=== PATIENT | male | born 1975 | race Caucasian/White ===

== ENCOUNTER 2022-09-23 17:38 | Inpatient (IN) ==
[2022-09-23 19:37] LABS: Basophils # 0.1 10*3/uL (0.0-0.2); Basophils % 0.9 % (0.0-0.8); Eosinophils # 0.2 10*3/uL (0.0-0.87); Eosinophils % 1.7 % (0.00-10.9); Hematocrit 32.2 VOL% (42.0-52.0); Hemoglobin 10.4 GM/DL (14.0-18.0); Immature Granulocytes % 0.5 %; Immature Granulocytes Absolute 0.05 #; Lymphocytes # 1.9 10*3/uL (1.4-4.0); Lymphocytes % 17.4 % (21.2-54.2); Mean Corpuscular HGB Conc 32.3 GM/DL (32-36); Mean Corpuscular Volume 91.7 FL (87-102); Mean Platelet Volume 9.3 FL (9.6-12.0); Monocytes # 0.7 10*3/uL (0.11-0.8); Monocytes % 6.8 % (1.7-12.7); Neutrophils % 72.7 % (38.7-73.9); Platelet Count 358 T/CUMM (130-400); Red Blood Count 3.51 MC/CUMM (3.8-5.5); Red Cell Distribution Width 16.1 % (9.3-17.3); White Blood Count 10.9 T/CUMM (4-12)
[2022-09-23] MEDS ORDERED: MORPHINE 2 MG/1 ML SYRINGE IV STA ×2 (19:37→20:38)
[2022-09-23] MEDS ORDERED: ONDANSETRON 4 MG/2 ML VIAL IV STA (19:37)
[2022-09-23] MEDS ORDERED: SODIUM CHLORIDE 0.9% 1,000 ML IV STA (19:37)
[2022-09-23 19:58] LABS: Albumin 2.8 G/DL (3.4-5.0); Bilirubin,Total 1.2 MG/DL (0.20-1.00); Calcium 9.6 MG/DL (8.5-10.1); Osmolality,Calculated 278.5 MOS/KG (273-304); Potassium 3.8 MMOL/L (3.5-5.1); Total Protein 6.8 G/DL (6.4-8.2)
[2022-09-23] MEDS ORDERED: BUDESONIDE/FORMOTEROL 160-4.5 INHALER 6 GM INH PRN (23:30)
[2022-09-23] MEDS: ONDANSETRON 4 MG/2 ML VIAL IV PRN (23:30)
[2022-09-23] MEDS: MORPHINE 2 MG/1 ML SYRINGE IV PRN (23:30)
[2022-09-23] MEDS ORDERED: ALBUTEROL 2.5 MG/3 ML NEB RESP TX PRN (23:36)
[2022-09-24] MEDS: traZODone 50 MG TABLET PO SCH ×2 (00:03→20:59)
[2022-09-24] MEDS: rOPINIRole 1 MG TABLET PO SCH ×2 (00:03→20:59)
[2022-09-24] MEDS: SODIUM CHLORIDE 0.9% 1,000 ML IV SCH ×3 (01:15→18:04)
[2022-09-24] MEDS: ONDANSETRON 4 MG/2 ML VIAL IV PRN ×4 (04:37→22:22)
[2022-09-24] MEDS: MORPHINE 2 MG/1 ML SYRINGE IV PRN ×2 (04:38→09:26)
[2022-09-24 06:50] LABS: Basophils # 0.1 10*3/uL (0.0-0.2); Basophils % 0.7 % (0.0-0.8); Eosinophils # 0.2 10*3/uL (0.0-0.87); Eosinophils % 2.5 % (0.00-10.9); Hematocrit 28.2 VOL% (42.0-52.0); Immature Granulocytes % 0.5 %; Immature Granulocytes Absolute 0.04 #; Lymphocytes # 1.9 10*3/uL (1.4-4.0); Lymphocytes % 21.8 % (21.2-54.2); Mean Corpuscular HGB Conc 31.9 GM/DL (32-36); Mean Corpuscular Volume 92.2 FL (87-102); Mean Platelet Volume 9.6 FL (9.6-12.0); Monocytes # 0.7 10*3/uL (0.11-0.8); Monocytes % 7.7 % (1.7-12.7); Neutrophils % 66.8 % (38.7-73.9); Platelet Count 330 T/CUMM (130-400); Red Blood Count 3.06 MC/CUMM (3.8-5.5); Red Cell Distribution Width 16.1 % (9.3-17.3); White Blood Count 8.5 T/CUMM (4-12)
[2022-09-24 07:27] LABS: Albumin 2.2 G/DL (3.4-5.0); Bilirubin,Total 0.9 MG/DL (0.20-1.00); Calcium 8.7 MG/DL (8.5-10.1); Osmolality,Calculated 280.4 MOS/KG (273-304); Potassium 3.8 MMOL/L (3.5-5.1); Total Protein 6.3 G/DL (6.4-8.2)
[2022-09-24] MEDS ORDERED: [UNRECOGNIZED DRUG - OTHER] PO SCH (08:00)
[2022-09-24] MEDS ORDERED: LIPASE PROTEASE AMYLASE PO SCH (08:00)
[2022-09-24] MEDS ORDERED: PANTOPRAZOLE 40 MG TABLET PO SCH ×2 (09:00)
[2022-09-24] MEDS ORDERED: lisinopriL 20 MG TABLET PO SCH (09:00)
[2022-09-24] MEDS: INSULIN REGULAR 100 UNIT/ML SUBCUT SCH ×4 (09:23→20:59)
[2022-09-24] MEDS: ENOXAPARIN 40 MG/0.4 ML SYRINGE SUBCUT SCH (09:24)
[2022-09-24] MEDS: IPRATROPIUM 500 MCG/2.5 ML NEB RESP TX SCH ×3 (10:35→19:54)
[2022-09-24] MEDS: HYDROmorphone 1 MG/1 ML SYRINGE IV PRN ×3 (13:20→21:40)
[2022-09-24] MEDS: SUCRALFATE 1 GM/10 ML UDCUP PO SCH ×2 (16:51→20:59)
[2022-09-24] MEDS: fentaNYL 50 MCG/HR PATCH TRANSDERM SCH (16:57)
[2022-09-24] MEDS: AMINO ACIDS/DEXT/LYTES 4.25-5% 1,000 ML IV SCH (18:03)
[2022-09-24] MEDS: PANTOPRAZOLE 40 MG VIAL IV SCH (20:56)
[2022-09-25] MEDS: HYDROmorphone 1 MG/1 ML SYRINGE IV PRN ×6 (00:53→21:12)
[2022-09-25] MEDS: ONDANSETRON 4 MG/2 ML VIAL IV PRN ×5 (04:22→21:12)
[2022-09-25 06:10] LABS: Basophils # 0.1 10*3/uL (0.0-0.2); Basophils % 0.9 % (0.0-0.8); Eosinophils # 0.3 10*3/uL (0.0-0.87); Eosinophils % 3.8 % (0.00-10.9); Hematocrit 26.2 VOL% (42.0-52.0); Hemoglobin 8.3 GM/DL (14.0-18.0); Immature Granulocytes % 0.6 %; Immature Granulocytes Absolute 0.05 #; Lymphocytes # 1.7 10*3/uL (1.4-4.0); Lymphocytes % 21.3 % (21.2-54.2); Mean Corpuscular HGB Conc 31.7 GM/DL (32-36); Mean Corpuscular Volume 93.6 FL (87-102); Mean Platelet Volume 9.5 FL (9.6-12.0); Monocytes # 0.6 10*3/uL (0.11-0.8); Monocytes % 7.5 % (1.7-12.7); Neutrophils % 65.9 % (38.7-73.9); Platelet Count 301 T/CUMM (130-400); White Blood Count 8.2 T/CUMM (4-12)
[2022-09-25 06:24] LABS: Calcium 7.7 MG/DL (8.5-10.1); Osmolality,Calculated 281.3 MOS/KG (273-304); Potassium 3.2 MMOL/L (3.5-5.1)
[2022-09-25] MEDS: IPRATROPIUM 500 MCG/2.5 ML NEB RESP TX SCH ×4 (07:45→19:01)
[2022-09-25] MEDS: SUCRALFATE 1 GM/10 ML UDCUP PO SCH ×4 (08:04→21:12)
[2022-09-25] MEDS: INSULIN REGULAR 100 UNIT/ML SUBCUT SCH ×4 (08:26→21:12)
[2022-09-25] MEDS: ENOXAPARIN 40 MG/0.4 ML SYRINGE SUBCUT SCH (08:26)
[2022-09-25] MEDS: PANTOPRAZOLE 40 MG VIAL IV SCH ×2 (08:27→21:11)
[2022-09-25] MEDS: FLUCONAZOLE INJ 200 MG/100 ML PREMIX IV SCH (11:01)
[2022-09-25] MEDS: LIDOCAINE 2% VISCOUS 100 ML BOTTLE SWISH/SWAL SCH ×3 (11:33→21:13)
[2022-09-25] MEDS: POTASSIUM CHLORIDE RIDER 10 MEQ/100 ML PREMIX IV SCH ×4 (12:15→16:34)
[2022-09-25] MEDS: AMINO ACIDS/DEXT/LYTES 4.25-5% 1,000 ML IV SCH (16:32)
[2022-09-25] MEDS: SODIUM CHLORIDE 0.9% 1,000 ML IV SCH (16:40)
[2022-09-25] MEDS: rOPINIRole 1 MG TABLET PO SCH (21:12)
[2022-09-26] MEDS: ONDANSETRON 4 MG/2 ML VIAL IV PRN ×7 (00:50→23:16)
[2022-09-26] MEDS: HYDROmorphone 1 MG/1 ML SYRINGE IV PRN ×7 (00:50→23:16)
[2022-09-26] MEDS: LIDOCAINE 2% VISCOUS 100 ML BOTTLE SWISH/SWAL SCH ×4 (02:46→21:40)
[2022-09-26 05:17] LABS: Basophils % 0.4 % (0.0-0.8); Eosinophils # 0.3 10*3/uL (0.0-0.87); Eosinophils % 2.7 % (0.00-10.9); Hemoglobin 9.2 GM/DL (14.0-18.0); Immature Granulocytes % 0.4 %; Immature Granulocytes Absolute 0.04 #; Lymphocytes # 1.8 10*3/uL (1.4-4.0); Lymphocytes % 19.2 % (21.2-54.2); Mean Corpuscular HGB Conc 32.9 GM/DL (32-36); Mean Corpuscular Volume 91.8 FL (87-102); Mean Platelet Volume 9.6 FL (9.6-12.0); Monocytes # 0.7 10*3/uL (0.11-0.8); Monocytes % 7.3 % (1.7-12.7); Platelet Count 323 T/CUMM (130-400); Red Blood Count 3.05 MC/CUMM (3.8-5.5); Red Cell Distribution Width 15.8 % (9.3-17.3); White Blood Count 9.3 T/CUMM (4-12)
[2022-09-26 05:35] LABS: Calcium 8.8 MG/DL (8.5-10.1); Osmolality,Calculated 274.8 MOS/KG (273-304); Potassium 3.8 MMOL/L (3.5-5.1)
[2022-09-26] MEDS: IPRATROPIUM 500 MCG/2.5 ML NEB RESP TX SCH ×4 (07:10→19:45)
[2022-09-26] MEDS: SUCRALFATE 1 GM/10 ML UDCUP PO SCH ×4 (08:10→20:13)
[2022-09-26] MEDS: SODIUM CHLORIDE 0.9% 1,000 ML IV SCH ×2 (08:11→14:43)
[2022-09-26] MEDS: ENOXAPARIN 40 MG/0.4 ML SYRINGE SUBCUT SCH (08:11)
[2022-09-26] MEDS: PANTOPRAZOLE 40 MG VIAL IV SCH ×2 (08:11→20:13)
[2022-09-26] MEDS: INSULIN REGULAR 100 UNIT/ML SUBCUT SCH ×4 (08:11→21:39)
[2022-09-26] MEDS: FLUCONAZOLE INJ 200 MG/100 ML PREMIX IV SCH (09:13)
[2022-09-26] MEDS: METOCLOPRAMIDE 10 MG/2 ML VIAL IV SCH ×3 (11:42→23:16)
[2022-09-26] MEDS: AMINO ACIDS/DEXT/LYTES 4.25-5% 1,000 ML IV SCH (17:03)
[2022-09-26] MEDS: rOPINIRole 1 MG TABLET PO SCH (20:14)
[2022-09-27] MEDS: ONDANSETRON 4 MG/2 ML VIAL IV PRN ×6 (03:12→20:40)
[2022-09-27] MEDS: LIDOCAINE 2% VISCOUS 100 ML BOTTLE SWISH/SWAL SCH ×4 (03:13→20:41)
[2022-09-27] MEDS: HYDROmorphone 1 MG/1 ML SYRINGE IV PRN ×6 (03:13→20:40)
[2022-09-27 05:48] LABS: Basophils # 0.1 10*3/uL (0.0-0.2); Basophils % 0.7 % (0.0-0.8); Eosinophils # 0.2 10*3/uL (0.0-0.87); Eosinophils % 2.1 % (0.00-10.9); Hematocrit 28.3 VOL% (42.0-52.0); Hemoglobin 9.1 GM/DL (14.0-18.0); Immature Granulocytes % 0.6 %; Immature Granulocytes Absolute 0.05 #; Lymphocytes # 1.5 10*3/uL (1.4-4.0); Lymphocytes % 16.9 % (21.2-54.2); Mean Corpuscular HGB Conc 32.2 GM/DL (32-36); Mean Corpuscular Volume 90.4 FL (87-102); Mean Platelet Volume 9.3 FL (9.6-12.0); Monocytes # 0.5 10*3/uL (0.11-0.8); Monocytes % 5.6 % (1.7-12.7); Neutrophils % 74.1 % (38.7-73.9); Platelet Count 294 T/CUMM (130-400); Red Blood Count 3.13 MC/CUMM (3.8-5.5); Red Cell Distribution Width 15.8 % (9.3-17.3)
[2022-09-27 06:01] LABS: Osmolality,Calculated 275.8 MOS/KG (273-304); Potassium 3.9 MMOL/L (3.5-5.1)
[2022-09-27] MEDS: METOCLOPRAMIDE 10 MG/2 ML VIAL IV SCH ×3 (06:19→17:24)
[2022-09-27] MEDS: IPRATROPIUM 500 MCG/2.5 ML NEB RESP TX SCH ×4 (07:22→19:39)
[2022-09-27] MEDS: INSULIN REGULAR 100 UNIT/ML SUBCUT SCH ×4 (08:01→20:40)
[2022-09-27] MEDS: SUCRALFATE 1 GM/10 ML UDCUP PO SCH ×4 (08:40→20:39)
[2022-09-27] MEDS: ENOXAPARIN 40 MG/0.4 ML SYRINGE SUBCUT SCH (08:40)
[2022-09-27] MEDS: PANTOPRAZOLE 40 MG VIAL IV SCH ×2 (08:41→20:41)
[2022-09-27] MEDS: fentaNYL 50 MCG/HR PATCH TRANSDERM SCH (08:52)
[2022-09-27] MEDS: FLUCONAZOLE INJ 200 MG/100 ML PREMIX IV SCH (08:52)
[2022-09-27] MEDS: AMINO ACIDS/DEXT/LYTES 4.25-5% 1,000 ML IV SCH (17:29)
[2022-09-27] MEDS: SODIUM CHLORIDE 0.9% 1,000 ML IV SCH (20:41)
[2022-09-27] MEDS: rOPINIRole 1 MG TABLET PO SCH (20:41)
[2022-09-28] MEDS: ONDANSETRON 4 MG/2 ML VIAL IV PRN ×7 (00:02→22:07)
[2022-09-28] MEDS: HYDROmorphone 1 MG/1 ML SYRINGE IV PRN ×7 (00:02→22:08)
[2022-09-28] MEDS: METOCLOPRAMIDE 10 MG/2 ML VIAL IV SCH ×4 (00:02→17:00)
[2022-09-28] MEDS: LIDOCAINE 2% VISCOUS 100 ML BOTTLE SWISH/SWAL SCH ×5 (03:13→22:16)
[2022-09-28 05:59] LABS: Basophils # 0.1 10*3/uL (0.0-0.2); Basophils % 0.5 % (0.0-0.8); Eosinophils # 0.3 10*3/uL (0.0-0.87); Eosinophils % 2.7 % (0.00-10.9); Immature Granulocytes % 0.5 %; Immature Granulocytes Absolute 0.05 #; Lymphocytes # 1.6 10*3/uL (1.4-4.0); Lymphocytes % 17.5 % (21.2-54.2); Mean Corpuscular HGB Conc 32.1 GM/DL (32-36); Mean Corpuscular Volume 90.9 FL (87-102); Monocytes # 0.6 10*3/uL (0.11-0.8); Monocytes % 6.1 % (1.7-12.7); Neutrophils % 72.7 % (38.7-73.9); Platelet Count 291 T/CUMM (130-400); Red Blood Count 3.08 MC/CUMM (3.8-5.5); Red Cell Distribution Width 15.7 % (9.3-17.3); White Blood Count 9.4 T/CUMM (4-12)
[2022-09-28 06:24] LABS: Calcium 8.4 MG/DL (8.5-10.1); Osmolality,Calculated 271.1 MOS/KG (273-304); Potassium 3.9 MMOL/L (3.5-5.1)
[2022-09-28] MEDS: IPRATROPIUM 500 MCG/2.5 ML NEB RESP TX SCH ×4 (07:45→20:40)
[2022-09-28] MEDS: PANTOPRAZOLE 40 MG VIAL IV SCH ×2 (08:04→22:07)
[2022-09-28] MEDS: INSULIN REGULAR 100 UNIT/ML SUBCUT SCH ×4 (08:09→22:08)
[2022-09-28] MEDS: SUCRALFATE 1 GM/10 ML UDCUP PO SCH ×4 (08:11→22:07)
[2022-09-28] MEDS: ENOXAPARIN 40 MG/0.4 ML SYRINGE SUBCUT SCH (08:11)
[2022-09-28] MEDS: FLUCONAZOLE INJ 200 MG/100 ML PREMIX IV SCH (08:30)
[2022-09-28] MEDS ORDERED: LIDOCAINE 2% 5 ML VIAL ONE (12:53)
[2022-09-28] MEDS ORDERED: propofoL 200 MG/20 ML VIAL IV ONE (12:53)
[2022-09-28] MEDS: SODIUM CHLORIDE 0.9% 1,000 ML IV SCH (16:16)
[2022-09-28] MEDS: AMINO ACIDS/DEXT/LYTES 4.25-5% 1,000 ML IV SCH (16:36)
[2022-09-28] MEDS: rOPINIRole 1 MG TABLET PO SCH (22:08)
[2022-09-29] MEDS: METOCLOPRAMIDE 10 MG/2 ML VIAL IV SCH ×4 (00:26→17:04)
[2022-09-29] MEDS: LIDOCAINE 2% VISCOUS 100 ML BOTTLE SWISH/SWAL SCH ×4 (03:07→20:48)
[2022-09-29] MEDS: ONDANSETRON 4 MG/2 ML VIAL IV PRN ×5 (03:18→20:41)
[2022-09-29] MEDS: HYDROmorphone 1 MG/1 ML SYRINGE IV PRN ×5 (03:20→20:41)
[2022-09-29 06:25] LABS: Basophils # 0.1 10*3/uL (0.0-0.2); Basophils % 0.8 % (0.0-0.8); Eosinophils # 0.3 10*3/uL (0.0-0.87); Hemoglobin 9.2 GM/DL (14.0-18.0); Immature Granulocytes % 1.3 %; Immature Granulocytes Absolute 0.12 #; Lymphocytes # 1.7 10*3/uL (1.4-4.0); Lymphocytes % 18.6 % (21.2-54.2); Mean Corpuscular HGB Conc 32.9 GM/DL (32-36); Mean Corpuscular Volume 90.3 FL (87-102); Mean Platelet Volume 9.8 FL (9.6-12.0); Monocytes # 0.6 10*3/uL (0.11-0.8); Neutrophils % 69.3 % (38.7-73.9); Platelet Count 269 T/CUMM (130-400); Red Cell Distribution Width 15.8 % (9.3-17.3); White Blood Count 9.1 T/CUMM (4-12)
[2022-09-29 06:52] LABS: Osmolality,Calculated 272.1 MOS/KG (273-304); Potassium 3.8 MMOL/L (3.5-5.1)
[2022-09-29] MEDS: IPRATROPIUM 500 MCG/2.5 ML NEB RESP TX SCH ×4 (07:15→19:17)
[2022-09-29] MEDS: SUCRALFATE 1 GM/10 ML UDCUP PO SCH ×4 (07:44→20:40)
[2022-09-29] MEDS: INSULIN REGULAR 100 UNIT/ML SUBCUT SCH ×5 (07:44→20:52)
[2022-09-29] MEDS: PANTOPRAZOLE 40 MG VIAL IV SCH ×2 (08:20→20:40)
[2022-09-29] MEDS: ENOXAPARIN 40 MG/0.4 ML SYRINGE SUBCUT SCH (08:24)
[2022-09-29] MEDS: FLUCONAZOLE INJ 200 MG/100 ML PREMIX IV SCH (08:30)
[2022-09-29] MEDS: SODIUM CHLORIDE 0.9% 1,000 ML IV SCH (15:58)
[2022-09-29] MEDS: rOPINIRole 1 MG TABLET PO SCH (20:40)
[2022-09-30] MEDS: METOCLOPRAMIDE 10 MG/2 ML VIAL IV SCH ×4 (00:33→18:20)
[2022-09-30] MEDS: ONDANSETRON 4 MG/2 ML VIAL IV PRN ×4 (00:34→13:50)
[2022-09-30] MEDS: HYDROmorphone 1 MG/1 ML SYRINGE IV PRN ×3 (00:34→08:55)
[2022-09-30] MEDS: LIDOCAINE 2% VISCOUS 100 ML BOTTLE SWISH/SWAL SCH (04:29)
[2022-09-30 05:27] LABS: Basophils # 0.1 10*3/uL (0.0-0.2); Basophils % 0.9 % (0.0-0.8); Eosinophils # 0.3 10*3/uL (0.0-0.87); Hematocrit 27.9 VOL% (42.0-52.0); Hemoglobin 8.9 GM/DL (14.0-18.0); Immature Granulocytes % 0.5 %; Immature Granulocytes Absolute 0.04 #; Lymphocytes # 1.7 10*3/uL (1.4-4.0); Lymphocytes % 20.5 % (21.2-54.2); Mean Corpuscular HGB Conc 31.9 GM/DL (32-36); Mean Corpuscular Volume 89.1 FL (87-102); Mean Platelet Volume 10.1 FL (9.6-12.0); Monocytes # 0.5 10*3/uL (0.11-0.8); Monocytes % 5.7 % (1.7-12.7); Neutrophils % 68.4 % (38.7-73.9); Platelet Count 304 T/CUMM (130-400); Red Blood Count 3.13 MC/CUMM (3.8-5.5); Red Cell Distribution Width 15.9 % (9.3-17.3); White Blood Count 8.2 T/CUMM (4-12)
[2022-09-30 05:51] LABS: Calcium 8.7 MG/DL (8.5-10.1); Osmolality,Calculated 277.5 MOS/KG (273-304); Potassium 3.7 MMOL/L (3.5-5.1)
[2022-09-30] MEDS: IPRATROPIUM 500 MCG/2.5 ML NEB RESP TX SCH ×2 (07:48→10:45)
[2022-09-30] MEDS: INSULIN REGULAR 100 UNIT/ML SUBCUT SCH ×4 (08:45→21:21)
[2022-09-30] MEDS: fentaNYL 50 MCG/HR PATCH TRANSDERM SCH (08:54)
[2022-09-30] MEDS: PANTOPRAZOLE 40 MG VIAL IV SCH ×2 (08:55→21:20)
[2022-09-30] MEDS: ENOXAPARIN 40 MG/0.4 ML SYRINGE SUBCUT SCH (08:55)
[2022-09-30] MEDS: SUCRALFATE 1 GM/10 ML UDCUP PO SCH ×4 (08:56→21:20)
[2022-09-30] MEDS: SODIUM CHLORIDE 0.9% 1,000 ML IV SCH ×2 (11:29→18:20)
[2022-09-30] MEDS ORDERED: hydrOXYzine HCL 25 MG/1 ML VIAL IM PRN (12:17)
[2022-09-30] MEDS ORDERED: hydrOXYzine HCL 2 MG/ML 30 ML/BOTTLE PO PRN (12:17)
[2022-09-30] MEDS ORDERED: hydrOXYzine HCL 25 MG TABLET PO PRN (13:00)
[2022-09-30] MEDS: HYDROcod/ACETAMIN 7.5-325 MG/15 ML UDCUP PO PRN ×3 (13:50→22:18)
[2022-09-30] MEDS: rOPINIRole 1 MG TABLET PO SCH (21:20)
[2022-10-01] MEDS: METOCLOPRAMIDE 10 MG/2 ML VIAL IV SCH ×3 (00:13→12:23)
[2022-10-01] MEDS: HYDROcod/ACETAMIN 7.5-325 MG/15 ML UDCUP PO PRN ×2 (02:16→06:04)
[2022-10-01] MEDS: ENOXAPARIN 40 MG/0.4 ML SYRINGE SUBCUT SCH (10:31)
[2022-10-01] MEDS: PANTOPRAZOLE 40 MG VIAL IV SCH (10:32)
[2022-10-01] MEDS: SUCRALFATE 1 GM/10 ML UDCUP PO SCH ×2 (10:32→12:22)
[2022-10-01] MEDS: INSULIN REGULAR 100 UNIT/ML SUBCUT SCH (11:03)
[2022-10-01] MEDS: ONDANSETRON 4 MG/2 ML VIAL IV PRN (12:23)
[2022-10-01 15:53] VITALS: BP 115/70
== END 2022-10-01 16:40 | disposition home or self-care (01) | DRG 380 ==
LOC: N.EDINP 17:38 → N.ED 17:38 → SUATTDRO 23:09 → N.3E 09-24 00:25
PROVIDERS: ADMIT Hospitalist; ATTEND Family Medicine

== ENCOUNTER 2022-11-04 17:51 | Inpatient (IN) ==
[2022-11-04] MEDS ORDERED: SODIUM CHLORIDE 0.9% 1,000 ML IV STA ×2 (18:29→19:09)
[2022-11-04] MEDS ORDERED: MORPHINE 2 MG/1 ML SYRINGE IV STA (19:09)
[2022-11-04] MEDS ORDERED: ONDANSETRON 4 MG/2 ML VIAL IV STA (19:09)
[2022-11-04 19:33] LABS: Albumin 3.5 G/DL (3.4-5.0); Bilirubin,Total 0.6 MG/DL (0.20-1.00); Calcium 10.2 MG/DL (8.5-10.1); Osmolality,Calculated 278.7 MOS/KG (273-304); Potassium 4.1 MMOL/L (3.5-5.1); Total Protein 7.5 G/DL (6.4-8.2)
[2022-11-04 19:34] LABS: Basophils # 0.1 10*3/uL (0.0-0.2); Basophils % 0.4 % (0.0-0.8); Eosinophils # 0.1 10*3/uL (0.0-0.87); Eosinophils % 0.5 % (0.00-10.9); Hematocrit 39.9 VOL% (42.0-52.0); Hemoglobin 13.1 GM/DL (14.0-18.0); Immature Granulocytes % 0.4 %; Immature Granulocytes Absolute 0.07 #; Lymphocytes # 2.3 10*3/uL (1.4-4.0); Lymphocytes % 14.3 % (21.2-54.2); Mean Corpuscular HGB Conc 32.8 GM/DL (32-36); Mean Corpuscular Volume 78.2 FL (87-102); Monocytes # 0.9 10*3/uL (0.11-0.8); Monocytes % 5.7 % (1.7-12.7); Neutrophils % 78.7 % (38.7-73.9); Platelet Count 493 T/CUMM (130-400); Red Cell Distribution Width 17.3 % (9.3-17.3)
[2022-11-04] MEDS ORDERED: LORazepam 2 MG/1 ML VIAL IV STA (19:43)
[2022-11-04] MEDS ORDERED: HYDROmorphone 1 MG/1 ML SYRINGE IV STA (21:09)
[2022-11-04] MEDS ORDERED: PROMETHAZINE 25 MG/1 ML VIAL IM STA (21:42)
[2022-11-04] MEDS ORDERED: NICOTINE 21 MG/24 HR PATCH TRANSDERM PRN (22:45)
[2022-11-04] MEDS: SODIUM CHLORIDE 0.9% 1,000 ML IV SCH (23:30)
[2022-11-04] MEDS ORDERED: GLUCAGON 1 MG VIAL IM PRN (23:41)
[2022-11-04] MEDS ORDERED: DEXTROSE 10% 250 ML BAG IV PRN (23:41)
[2022-11-05 00:14] LABS: Hyaline Casts,Urine 8 /LPF (0-3); Mucus,Urine Many /LPF (Occasional); RBC,Urine 1 /HPF (0-4); Squamous Epithelial Cell,Urine Occasional /HPF (0-10)
[2022-11-05 00:42] LABS: Urine Appearance Clear (Clear); Urine Color Yellow (Yellow); Urine Specific Gravity 1.015 (1.001-1.035)
[2022-11-05 00:43] LABS: Bilirubin,Urine Negative (Negative); Blood, Urine Negative (Negative); Glucose,Urine (UA) Negative (Negative); Ketones,Urine 15 mg/dL (Negative); Nitrite,Urine Negative (Negative); Protein,Urine 30 mg/dL (Negative); Urine Urobilinogen 0.2 eU/dL (<2.0)
[2022-11-05] MEDS: ONDANSETRON 4 MG/2 ML VIAL IV PRN ×5 (00:45→18:47)
[2022-11-05] MEDS: MORPHINE 2 MG/1 ML SYRINGE IV PRN ×2 (00:45→03:40)
[2022-11-05 05:34] LABS: Basophils # 0.1 10*3/uL (0.0-0.2); Basophils % 0.5 % (0.0-0.8); Eosinophils # 0.2 10*3/uL (0.0-0.87); Eosinophils % 1.6 % (0.00-10.9); Hematocrit 34.3 VOL% (42.0-52.0); Immature Granulocytes % 0.4 %; Immature Granulocytes Absolute 0.04 #; Lymphocytes % 18.3 % (21.2-54.2); Mean Corpuscular HGB Conc 32.1 GM/DL (32-36); Mean Corpuscular Volume 80.5 FL (87-102); Mean Platelet Volume 9.6 FL (9.6-12.0); Monocytes # 0.7 10*3/uL (0.11-0.8); Monocytes % 6.7 % (1.7-12.7); Neutrophils % 72.5 % (38.7-73.9); Platelet Count 304 T/CUMM (130-400); Red Blood Count 4.26 MC/CUMM (3.8-5.5); Red Cell Distribution Width 17.2 % (9.3-17.3); White Blood Count 10.82 T/CUMM (4-12)
[2022-11-05] MEDS ORDERED: LORazepam 2 MG/1 ML VIAL IV ONE (06:00)
[2022-11-05 06:01] LABS: Calcium 8.8 MG/DL (8.5-10.1); Osmolality,Calculated 282.4 MOS/KG (273-304); Potassium 3.7 MMOL/L (3.5-5.1); Thyroid Stimulating Hormone 1.28 uIU/ml (0.358-3.74)
[2022-11-05] MEDS: HYDROmorphone 1 MG/1 ML SYRINGE IV PRN ×5 (08:07→22:19)
[2022-11-05] MEDS: INSULIN REGULAR 100 UNIT/ML SUBCUT SCH ×4 (09:56→20:56)
[2022-11-05] MEDS: SODIUM CHLORIDE 0.9% 1,000 ML IV SCH ×2 (10:04→20:56)
[2022-11-05] MEDS: FAMOTIDINE INJ 40 MG in SODIUM CHLORIDE 0.9% 100 ML IV SCH ×2 (11:16→22:19)
[2022-11-05] MEDS: PROMETHAZINE 25 MG/1 ML VIAL IM PRN (20:55)
[2022-11-06] MEDS: ONDANSETRON 4 MG/2 ML VIAL IV PRN ×6 (01:27→17:53)
[2022-11-06] MEDS: HYDROmorphone 1 MG/1 ML SYRINGE IV PRN ×7 (01:28→20:51)
[2022-11-06 06:07] LABS: Basophils # 0.1 10*3/uL (0.0-0.2); Basophils % 0.7 % (0.0-0.8); Eosinophils # 0.2 10*3/uL (0.0-0.87); Eosinophils % 2.9 % (0.00-10.9); Hematocrit 32.2 VOL% (42.0-52.0); Immature Granulocytes % 0.4 %; Immature Granulocytes Absolute 0.03 #; Lymphocytes # 2.1 10*3/uL (1.4-4.0); Lymphocytes % 28.9 % (21.2-54.2); Mean Corpuscular HGB Conc 31.1 GM/DL (32-36); Mean Corpuscular Volume 80.9 FL (87-102); Mean Platelet Volume 9.4 FL (9.6-12.0); Monocytes # 0.4 10*3/uL (0.11-0.8); Monocytes % 5.4 % (1.7-12.7); Neutrophils % 61.7 % (38.7-73.9); Platelet Count 245 T/CUMM (130-400); Red Blood Count 3.98 MC/CUMM (3.8-5.5); Red Cell Distribution Width 16.7 % (9.3-17.3); White Blood Count 7.26 T/CUMM (4-12)
[2022-11-06 06:17] LABS: Albumin 2.6 G/DL (3.4-5.0); Bilirubin,Direct 0.22 MG/DL (0.0-0.20); Bilirubin,Indirect 0.3 MG/DL (0.0-1.0); Bilirubin,Total 0.5 MG/DL (0.20-1.00); Calcium 8.7 MG/DL (8.5-10.1); Osmolality,Calculated 272.8 MOS/KG (273-304); Potassium 3.8 MMOL/L (3.5-5.1); Total Protein 6.5 G/DL (6.4-8.2)
[2022-11-06] MEDS: INSULIN REGULAR 100 UNIT/ML SUBCUT SCH ×4 (08:20→20:59)
[2022-11-06] MEDS: SODIUM CHLORIDE 0.9% 1,000 ML IV SCH ×2 (08:21→16:34)
[2022-11-06] MEDS: FAMOTIDINE INJ 40 MG in SODIUM CHLORIDE 0.9% 100 ML IV SCH ×2 (10:58→23:48)
[2022-11-06] MEDS ORDERED: LORazepam 2 MG/1 ML VIAL IM ONE (14:22)
[2022-11-06] MEDS: PROMETHAZINE 25 MG/1 ML VIAL IM PRN (21:59)
[2022-11-07] MEDS: SODIUM CHLORIDE 0.9% 1,000 ML IV SCH (04:12)
[2022-11-07] MEDS: ONDANSETRON 4 MG/2 ML VIAL IV PRN ×2 (04:12→08:10)
[2022-11-07] MEDS: HYDROmorphone 1 MG/1 ML SYRINGE IV PRN ×2 (04:13→08:08)
[2022-11-07 05:46] LABS: Basophils % 0.7 % (0.0-0.8); Eosinophils # 0.2 10*3/uL (0.0-0.87); Eosinophils % 2.8 % (0.00-10.9); Hematocrit 31.1 VOL% (42.0-52.0); Immature Granulocytes % 0.5 %; Immature Granulocytes Absolute 0.03 #; Lymphocytes # 1.3 10*3/uL (1.4-4.0); Lymphocytes % 22.2 % (21.2-54.2); Mean Corpuscular HGB Conc 32.2 GM/DL (32-36); Mean Corpuscular Volume 81.2 FL (87-102); Mean Platelet Volume 10.5 FL (9.6-12.0); Monocytes # 0.3 10*3/uL (0.11-0.8); Monocytes % 5.5 % (1.7-12.7); Neutrophils % 68.3 % (38.7-73.9); Platelet Count 256 T/CUMM (130-400); Red Blood Count 3.83 MC/CUMM (3.8-5.5); Red Cell Distribution Width 16.6 % (9.3-17.3); White Blood Count 5.99 T/CUMM (4-12)
[2022-11-07 06:02] LABS: Calcium 8.9 MG/DL (8.5-10.1); Osmolality,Calculated 275.8 MOS/KG (273-304)
[2022-11-07] MEDS: INSULIN REGULAR 100 UNIT/ML SUBCUT SCH ×4 (08:06→21:43)
[2022-11-07] MEDS: PROMETHAZINE 25 MG/1 ML VIAL IM PRN (11:31)
[2022-11-07] MEDS: FAMOTIDINE INJ 40 MG in SODIUM CHLORIDE 0.9% 100 ML IV SCH (11:50)
[2022-11-07] MEDS ORDERED: LORazepam 1 MG TABLET PO ONE (13:44)
[2022-11-07] MEDS ORDERED: HYDROmorphone 2 MG TABLET PO ONE (13:47)
[2022-11-07] MEDS: HYDROmorphone 2 MG TABLET PO PRN ×2 (17:26→21:43)
[2022-11-07] MEDS: ONDANSETRON ODT 4 MG TABLET PO PRN ×2 (17:26→21:43)
[2022-11-08] MEDS: FAMOTIDINE INJ 40 MG in SODIUM CHLORIDE 0.9% 100 ML IV SCH ×3 (00:58→23:29)
[2022-11-08] MEDS: HYDROmorphone 2 MG TABLET PO PRN ×4 (01:01→21:38)
[2022-11-08] MEDS: PROMETHAZINE 25 MG/1 ML VIAL IM PRN (02:28)
[2022-11-08] MEDS: INSULIN REGULAR 100 UNIT/ML SUBCUT SCH ×4 (08:14→21:51)
[2022-11-08 08:33] LABS: Basophils % 0.6 % (0.0-0.8); Eosinophils # 0.2 10*3/uL (0.0-0.87); Eosinophils % 2.6 % (0.00-10.9); Immature Granulocytes % 0.3 %; Immature Granulocytes Absolute 0.02 #; Lymphocytes # 1.4 10*3/uL (1.4-4.0); Lymphocytes % 20.7 % (21.2-54.2); Mean Corpuscular HGB Conc 31.4 GM/DL (32-36); Mean Platelet Volume 9.6 FL (9.6-12.0); Monocytes # 0.4 10*3/uL (0.11-0.8); Monocytes % 5.6 % (1.7-12.7); Neutrophils % 70.2 % (38.7-73.9); Platelet Count 253 T/CUMM (130-400); Red Blood Count 4.32 MC/CUMM (3.8-5.5); Red Cell Distribution Width 16.6 % (9.3-17.3); White Blood Count 6.92 T/CUMM (4-12)
[2022-11-08 08:58] LABS: % Iron Saturation 7.6 % (18-50); Calcium 9.3 MG/DL (8.5-10.1); Ferritin 81.9 ng/mL (26-388); Osmolality,Calculated 281.5 MOS/KG (273-304); Potassium 4.4 MMOL/L (3.5-5.1)
[2022-11-08] MEDS: ONDANSETRON ODT 4 MG TABLET PO PRN (09:52)
[2022-11-08] MEDS ORDERED: CLORAZEPATE 3.75 MG TABLET PO PRN (14:39)
[2022-11-08] MEDS: traMADol 50 MG TABLET PO PRN (15:29)
[2022-11-08] MEDS: ONDANSETRON ODT 4 MG TABLET PO SCH ×2 (15:29→21:35)
[2022-11-08] MEDS: FERRIC GLUCONATE COMPLEX 125 MG in SODIUM CHLORIDE 0.9% 100 ML IV SCH (16:14)
[2022-11-08] MEDS: SUCRALFATE 1 GM/10 ML UDCUP PO SCH ×2 (16:14→21:39)
[2022-11-08 16:31] LABS: Folate 17.91 NG/ML (5.38-24.0)
[2022-11-09] MEDS: traMADol 50 MG TABLET PO PRN (03:23)
[2022-11-09] MEDS: ONDANSETRON ODT 4 MG TABLET PO SCH ×2 (03:23→09:37)
[2022-11-09] MEDS: FERRIC GLUCONATE COMPLEX 125 MG in SODIUM CHLORIDE 0.9% 100 ML IV SCH (09:35)
[2022-11-09] MEDS: INSULIN REGULAR 100 UNIT/ML SUBCUT SCH ×2 (09:36→11:39)
[2022-11-09] MEDS: SUCRALFATE 1 GM/10 ML UDCUP PO SCH ×2 (09:37→11:40)
[2022-11-09] MEDS: HYDROmorphone 2 MG TABLET PO PRN (09:37)
[2022-11-09] MEDS: FAMOTIDINE INJ 40 MG in SODIUM CHLORIDE 0.9% 100 ML IV SCH (11:40)
[2022-11-09 13:06] VITALS: BP 116/83
[2022-11-09] MEDS ORDERED: FERROUS SULFATE 300 MG/5 ML UDCUP PO SCH (21:00)
== END 2022-11-09 11:58 | disposition home or self-care (01) | DRG 439 ==
LOC: N.EDINP 17:51 → N.ED 17:51 → SUATTDRO 22:45 → N.2W 11-05 02:55 → N.TELES 11-06 18:46
PROVIDERS: ADMIT Internal Medicine; ATTEND Internal Medicine